=== PATIENT | female | born 1980 | race Two or more races ===

== ENCOUNTER 2017-07-30 11:11 | Inpatient (IN) | payer BC ==
[~2017-07-30] VITALS: Ht 160 cm; Wt 113.5 kg
[2017-07-30] MEDS ORDERED: SODIUM CHLORIDE 0.9% 1,000 ML IVB ONE (11:35)
[2017-07-30] MEDS ORDERED: ONDANSETRON HCL 4 MG/2 ML VIAL IV ONE (11:45)
[2017-07-30 11:53] LABS: Basophils # (auto) 0.2 uL; Basophils % (auto) 2.4 % (0.0-2.0); Eosinophils # (auto) 0.1 uL; Eosinophils % (auto) 1.1 % (0.0-7.0); Hematocrit 45.3 % (36.0-46.0); Hemoglobin 15.5 g/dL (12.2-16.2); Lymphocytes # (auto) 1.4 uL; Lymphocytes % (auto) 18.9 % (10.0-50.0); Mean Corpuscular Hemoglobin 32.3 pg (28.0-32.0); Mean Corpuscular Hgb Conc. 34.3 g/dL (32.0-36.0); Mean Corpuscular Volume 94.3 fL (80.0-100.0); Monocytes # (auto) 0.5 uL; Monocytes % (auto) 6.3 % (0.0-12.0); Neutrophils # (auto) 5.3 uL; Neutrophils % (auto) 71.3 % (37.0-80.0); Nucleated Red Blood Cells % 0.1 %; Platelet Count (auto) 410 10^3/uL (140-450); Red Cell Distribution Width 13.4 % (11.8-14.3); White Blood Cell 7.5 10^3/uL (4.4-10.8)
[2017-07-30 12:04] LABS: INR 0.95 (0.9-1.15); Partial Thromboplastin Time 25.6 sec (22.64-33.71); Prothrombin Time 10.3 sec (9.37-12.3)
[2017-07-30 12:11] LABS: Albumin 4.3 g/dL (3.4-5.0); BUN/Creatinine Ratio 5.7; Bilirubin, Total 0.9 mg/dL (0.2-1.0); Calcium 8.7 mg/dL (8.5-10.1); Magnesium 2.1 mg/dL (1.6-2.6); Potassium 3.5 mmol/L (3.5-5.1); Total Protein 8.8 g/dL (6.4-8.2)
[2017-07-30 13:59] LABS: Urine Bacteria FEW /hpf (None Seen); Urine Blood TRACE /uL (Negative); Urine Specific Gravity 1.004 (1.001-1.035); Urine WBC <1 /hpf (0 - 5)
[2017-07-30] MEDS ORDERED: PROMETHAZINE HCL 25 MG/ML 1ML IV PRN (15:45)
[2017-07-30] MEDS ORDERED: MORPHINE SULFATE 4 MG/ML SYR/VIAL IV PRN ×3 (15:45)
[2017-07-30] MEDS ORDERED: LORazepam 0.5 MG TAB PO PRN (15:45)
[2017-07-30] MEDS ORDERED: NITROGLYCERIN 0.4 MG SL TAB SL PRN (15:45)
[2017-07-30] MEDS ORDERED: ENOXAPARIN SOD 40 MG/0.4 ML SYRINGE SC SCH (16:10)
[2017-07-30] MEDS: PANTOPRAZOLE 40 MG TAB PO SCH (16:28)
[2017-07-30] MEDS: SODIUM CHLORIDE 0.9% 1,000 ML IV SCH (16:28)
[2017-07-30 16:52] LABS: CRP High Sensitivity 0.47 mg/dL (< 0.3)
[2017-07-30] MEDS ORDERED: IOHEXOL 350 MG/ML 100ML IJ ONE (17:09)
[2017-07-30 17:51] VITALS: BP 160/107
[2017-07-30] MEDS: LABETALOL HCL 5 MG/ML ML 20ML VIAL IV PRN (18:47)
[2017-07-30 19:03] LABS: Amphetamine Screen, Urine NEGATIVE (NEGATIVE); Barbiturate Scree,Urine NEGATIVE (NEGATIVE); Benzodiazephine Screen, Urine NEGATIVE (NEGATIVE); Cannabinoid Screen, Urine NEGATIVE (NEGATIVE); Cocaine Screen, Urine NEGATIVE (NEGATIVE); Opiate Scree,Urine NEGATIVE (NEGATIVE); Phencyclidine Screen, Urine NEGATIVE (NEGATIVE)
[2017-07-30] MEDS: TEMAZEPAM 15 MG CAP PO PRN (21:56)
[2017-07-30] MEDS: METOPROLOL TARTRATE 25 MG TAB PO SCH (21:56)
[2017-07-30 22:24] VITALS: BP 196/87
[2017-07-31 01:28] LABS: Amylase 27 U/L (25-115); Lipase 180 U/L (73-393)
[2017-07-31 03:52] LABS: Alanine Aminotransferase 288 U/L (13-56); Albumin 3.4 g/dL (3.4-5.0); Anion Gap 6 (5-15); Aspartate Aminotransferase 239 U/L (15-37); BUN/Creatinine Ratio 12.3; Blood Urea Nitrogen 7 mg/dL (7-18); Calcium 7.6 mg/dL (8.5-10.1); Carbon Dioxide 28 mmol/L (21-32); Chloride 103 mmol/L (98-107); GFR African American 153 mL/min; GFR Non-African American 127 mL/min; Glucose 80 mg/dL (74-106); Potassium 3.3 mmol/L (3.5-5.1); Sodium 137 mmol/L (136-145)
[2017-07-31 03:58] LABS: Cholesterol 165 mg/dL (< 200); HDL Cholesterol 98 mg/dL (40-59); LDL Cholesterol 63 mg/dL (< 100); Triglycerides 51 mg/dL (< 150)
[2017-07-31 04:09] LABS: Alkaline Phosphatase 81 U/L (45-117); Bilirubin, Total 1.4 mg/dL (0.2-1.0)
[2017-07-31 05:17] VITALS: BP 146/95
[2017-07-31] MEDS: SODIUM CHLORIDE 0.9% 1,000 ML IV SCH (06:51)
[2017-07-31 09:00] VITALS: BP 155/101
[2017-07-31] MEDS: METOPROLOL TARTRATE 25 MG TAB PO SCH (09:53)
[2017-07-31] MEDS: PANTOPRAZOLE 40 MG TAB PO SCH (09:54)
[2017-07-31] MEDS ORDERED: ENOXAPARIN SOD 40 MG/0.4 ML SYRINGE SC SCH (10:00)
[2017-07-31] MEDS ORDERED: PRO10T PO (10:12)
[2017-07-31] MEDS ORDERED: ALPR-140 PO (10:12)
[2017-07-31 13:00] VITALS: BP_SYST 127; BP_SYST 151; BP_DIAS 107; BP_DIAS 51
[2017-07-31] MEDS ORDERED: chlordiazePOXIDE HCL 5 MG CAP PO PRN (14:00)
[2017-07-31] MEDS ORDERED: THIAMINE HCL 100 MG TAB PO ONE (14:15)
[2017-07-31 16:39] VITALS: BP 150/102
[2017-07-31] MEDS: LABETALOL HCL 5 MG/ML ML 20ML VIAL IV PRN ×2 (18:22→21:23)
[2017-07-31] MEDS: SUCRALFATE 1 GM/10 ML ORAL SUSP PO SCH ×2 (18:23→22:22)
[2017-07-31] MEDS ORDERED: LABETALOL HCL 5 MG/ML ML 20ML VIAL IV PRN (22:00)
[2017-07-31 22:08] VITALS: BP 161/108
[2017-07-31] MEDS: TEMAZEPAM 15 MG CAP PO PRN (22:23)
[2017-08-01] VITALS (7 sets, daily range): BP systolic 141–165; BP diastolic 90–110
[2017-08-01] MEDS: LABETALOL HCL 5 MG/ML ML 20ML VIAL IV PRN ×3 (04:43→17:35)
[2017-08-01] MEDS: SUCRALFATE 1 GM/10 ML ORAL SUSP PO SCH ×4 (06:32→22:03)
[2017-08-01 09:35] LABS: Hepatitis B Surface Antibody Negative
[2017-08-01] MEDS: PANTOPRAZOLE 40 MG TAB PO SCH (09:42)
[2017-08-01 09:46] LABS: Hepatitis B Surface Antigen Negative (Negative)
[2017-08-01] MEDS ORDERED: LABETALOL HCL 200 MG TAB PO SCH (10:00)
[2017-08-01 10:14] LABS: Hepatitis A Total Antibody Negative; Hepatitis C Antibody Negative (Negative)
[2017-08-01 10:15] LABS: Hepatitis B Core Total AB Negative
[2017-08-01] MEDS: THIAMINE HCL 100 MG TAB PO SCH (11:11)
[2017-08-01] MEDS: MULTIPLE VITAMIN 10 ML, FOLIC ACID 1 MG, MAGNESIUM SULF SDV 50% 8 MEQ in D5W 5% 1,000 ML IV SCH (11:51)
[2017-08-01] MEDS ORDERED: LISINOPRIL 5 MG TAB PO ONE (15:00)
[2017-08-01 19:25] LABS: Protein, Urine 11.2 mg/dL (0.0-11.9)
[2017-08-01 19:32] LABS: 24 Hr. Total Protein, Urine 263.2 mg/24 Hr (<149.1)
[2017-08-01] MEDS: LABETALOL HCL 200 MG TAB PO SCH (22:04)
[2017-08-02 05:23] VITALS: BP 123/81
[2017-08-02 06:11] LABS: Albumin 3.2 g/dL (3.4-5.0); Calcium 8.4 mg/dL (8.5-10.1); Potassium 3.2 mmol/L (3.5-5.1)
[2017-08-02 06:15] LABS: Bilirubin, Total 0.9 mg/dL (0.2-1.0); Total Protein 6.8 g/dL (6.4-8.2)
[2017-08-02] MEDS: SUCRALFATE 1 GM/10 ML ORAL SUSP PO SCH (06:47)
[2017-08-02 08:00] VITALS: BP 124/77
[2017-08-02 08:21] VITALS: BP 124/77
[2017-08-02] MEDS: PANTOPRAZOLE 40 MG TAB PO SCH (09:56)
[2017-08-02] MEDS: LABETALOL HCL 200 MG TAB PO SCH (09:57)
[2017-08-02] MEDS ORDERED: LISINOPRIL 5 MG TAB PO SCH (10:00)
[2017-08-02] MEDS ORDERED: LAB200T PO (10:42)
[2017-08-02] MEDS ORDERED: LISI-275 PO (10:42)
[2017-08-02] MEDS ORDERED: POTASSIUM CHL 20 Meq TABLET PO ONE (10:45)
[2017-08-02] MEDS: MULTIPLE VITAMIN 10 ML, FOLIC ACID 1 MG, MAGNESIUM SULF SDV 50% 8 MEQ in D5W 5% 1,000 ML IV SCH (11:01)
[2017-08-02] MEDS: THIAMINE HCL 100 MG TAB PO SCH (11:01)
[2017-08-02 11:59] VITALS: BP 122/87
[2017-08-02 13:17] VITALS: BP 122/87
== END 2017-08-02 14:25 | disposition home or self-care (01) | DRG 897 ==
LOC: ER 11:11 → TELE-WESTW 11:12
PROVIDERS: ADMIT Internal Medicine; ATTEND Internal Medicine
DX: F10.239 Alcohol dependence with withdrawal, unspecified (principal); F10.229 Alcohol dependence with intoxication, unspecified; E66.01 Morbid (severe) obesity due to excess calories; Z68.41 Body mass index [BMI] 40.0-44.9, adult; K70.0 Alcoholic fatty liver; E87.6 Hypokalemia; F41.9 Anxiety disorder, unspecified; R00.0 Tachycardia, unspecified; I10 Essential (primary) hypertension; J45.909 Unspecified asthma, uncomplicated; Z80.8 Family history of malignant neoplasm of other organs or systems; Z88.5 Allergy status to narcotic agent; Z88.0 Allergy status to penicillin; Z88.2 Allergy status to sulfonamides
CPT/HCPCS: 36415; 71046; 71275; 74176; 76705; 80053; 80061; 80307; 81001; 82150; 82550; 83690; 83735; 83835; 83880; 84156; 84260; 84443; 84484; 85025; 85379; 85610; 85652; 85730; 86141; 86225; 86235; 86704; 86706; 86708; 86803; 87081; 87340; 93005; 93306; 96361; 96372; 96374; J2405